=== PATIENT | male | born 1970 | race Caucasian/White ===

== ENCOUNTER 2018-07-19 10:33 | Emergency (ER) | payer OTHER ==
[2018-07-19 11:11] VITALS: BP 162/91; PULSE 90; TEMP 97.4
--- NOTE | 2018-07-19 11:41 | ED ---
General Adult HPI - General Chief complaint: Recheck/Abnormal Lab/Rx Stated complaint: detox Time Seen by Provider: 07/19/18 11:33 Source: patient, RN notes reviewed Mode of arrival: ambulatory Limitations: no limitations - History of Present Illness Initial comments: Patient is a pleasant 47-year-old male presenting to the emergency Department with desire to get off of alcohol. Patient has been drinking daily for the past 4 days. Last alcohol was around 2 AM. Patient states he is also had sinus congestion and cough for the past couple of weeks. No dyspnea. Occasional greenish sputum. No fevers. Patient does have a history of alcohol problems in the past and is going to try to get into rehab. - Related Data Previous Rx's Medication Instructions Recorded ALPRAZolam [Xanax] 0.5 mg PO Q8HR PRN #9 tablet 07/19/18 Azithromycin [Zithromax Z-pack] 250 mg PO DIRECTED #6 tab 07/19/18 Allergies Allergy/AdvReac Type Severity Reaction Status Date / Time No Known Allergies Allergy Verified 07/19/18 11:11 Review of Systems ROS Statement: Those systems with pertinent positive or pertinent negative responses have been documented in the HPI. ROS Other: All systems not noted in ROS Statement are negative. Constitutional: Denies: fever Eyes: Denies: eye pain ENT: Denies: ear pain Respiratory: Denies: cough Cardiovascular: Denies: chest pain Endocrine: Denies: fatigue Gastrointestinal: Denies: abdominal pain Genitourinary: Denies: dysuria Musculoskeletal: Denies: back pain Skin: Denies: lesions Neurological: Denies: headache, weakness, confusion Past Medical History Past Medical History: No Reported History History of Any Multi-Drug Resistant Organisms: None Reported Past Surgical History: Tonsillectomy Additional Past Surgical History / Comment(s): Melanoma Past Psychological History: No Psychological Hx Reported Smoking Status: Current every day smoker Past Alcohol Use History: Daily Past Drug Use History: None Reported General Exam Limitations: no limitations General appearance: alert, in no apparent distress Head exam: Present: normocephalic Eye exam: Present: normal appearance, PERRL, EOMI ENT exam: Present: normal oropharynx, other (Mild tenderness to sinuses) Neck exam: Present: normal inspection. Absent: tenderness Respiratory exam: Present: normal lung sounds bilaterally. Absent: respiratory distress, rales Cardiovascular Exam: Present: regular rate, normal rhythm GI/Abdominal exam: Present: soft. Absent: tenderness Extremities exam: Present: normal inspection Neurological exam: Present: alert Psychiatric exam: Present: normal affect, normal mood Skin exam: Present: normal color Course Vital Signs 07/19/18 07/19/18 11:09 11:40 Temperature 97.4 F L Pulse Rate 90 Respiratory 20 18 Rate Blood Pressure 162/91 O2 Sat by Pulse 99 Oximetry Medical Decision Making - Medical Decision Making Patient reevaluated and updated. Patient is comfortable with discharge with referrals for alcohol abuse programs. Patient states he will discontinue alcohol use and is receptive to Xanax. Patient advised not to use together. - Radiology Data Radiology results: image reviewed Disposition Clinical Impression: Sinusitis, Bronchitis, Alcohol abuse Disposition: HOME SELF-CARE Condition: Stable Instructions: Abuse of Alcohol (ED), Sinusitis (ED), Acute Bronchitis (ED) Additional Instructions: Follow-up with alcohol rehab, list provided. This continue alcohol use. Do not drink alcohol with Xanax. Please follow-up with primary care physician in the next day or 2 for recheck. Return for difficulty breathing, fevers, worsening or change in symptoms or other concerns. Prescriptions: ALPRAZolam [Xanax] 0.5 mg PO Q8HR PRN #9 tablet PRN Reason: Anxiety Azithromycin [Zithromax Z-pack] 250 mg PO DIRECTED #6 tab Is patient prescribed a controlled substance at d/c from ED?: Yes When asked, does pt state using other controlled substances?: No If prescribed controlled substance>3 days was MAPS reviewed?: Prescribed <3 Days Referrals: Cindy Faria MD [REFERRING] - 1-2 days Time of Disposition: 12:11
[2018-07-19 11:42] VITALS: RESP 18
--- NOTE | 2018-07-19 12:06 | XR ---
EXAMINATION TYPE: XR chest 2V DATE OF EXAM: 07/19/2018 HISTORY: cough. REFERENCE: NONE. FINDINGS: The lungs are clear. Pleural space are clear. Heart size upper limits of normal. IMPRESSION: NO ACUTE INTRATHORACIC ABNORMALITY.
== END 2018-07-19 12:21 | disposition home or self-care (01) ==
LOC: EC 10:33
DX: J40 Bronchitis, not specified as acute or chronic (principal); J32.9 Chronic sinusitis, unspecified; F10.10 Alcohol abuse, uncomplicated; F17.200 Nicotine dependence, unspecified, uncomplicated
CPT/HCPCS: 71046; 99283